=== PATIENT | male | born 1990 | race Caucasian/White ===

== ENCOUNTER 2016-04-20 08:19 | Emergency (ER) | payer OTHER ==
--- NOTE | 2016-04-20 09:30 | UCPHY ---
H & P Time Seen by Provider: 04/20/16 08:46 Patient Type: New HPI/ROS: HPI Diarrhea. 25-year-old male by private vehicle. This patient reports that he has had intermittent watery diarrhea since Tuesday. He describes having 3-4 episodes of this per day. Usually after meals. It has been associated with crampy lower abdominal discomfort. He has had no nausea or vomiting. He has been drinking and eating without issue. No bloody or melenic stool. He denies camping. No ill contacts. No change in diet. No foreign travel. ROS: Constitutional: No fever, no chills. No weakness. Respiratory: No cough. No shortness of breath. Cardiac: No chest pain, no palpitations. Gastrointestinal: As above. Genitourinary: No hematuria. No dysuria or increased frequency with urination. Musculoskeletal: No back pain. No neck pain. No myalgias or arthralgias. Neurological: No headache. No focal weakness or altered sensation. Past medical history: None. Social history: Nonsmoker. Here by himself. Physical Exam: General Appearance: Alert, no distress. This patient is responding to questions appropriately and in full sentences. This patient appears well- hydrated and well-nourished. Eyes: Pupils equal and round no pallor or injection. No lid edema, erythema or injection. Respiratory: There are no retractions, lungs are clear to auscultation with good air movement bilaterally. Cardiovascular: Regular rate and rhythm. No murmur. Gastrointestinal: Abdomen is soft and nontender, no masses, bowel sounds normal. No focal tenderness at McBurney's point. No Thomas sign. Neurological: Motor sensory function is grossly intact. Cranial nerves are normal. Gait is normal. Skin: Warm and dry, no rashes. Extremities are symmetrical. All joints range without pain or impingement. Psychiatric: No agitation. No depression. Database: EKG: Imaging: Procedures: Emergency department course: After my evaluation, I explained to the patient that he likely had a viral enteritis or food-borne illness. His vital signs have been reviewed and are normal. He has a benign abdominal exam. He is eating and drinking fluids without issue. He feels comfortable going home and I feel he is safe for discharge. Follow-up and return to Urgent Care precautions reviewed with him. All of his questions were answered. He was discharged in good condition. Differential Diagnosis: The differential diagnosis on this patient includes but is not limited to food borne illness, viral enteritis. Entero hemorrhagic E coli infection, inflammatory bowel syndrome, severe dehydration unlikely. This represents a partial list of diagnoses considered. These considerations are based on history , physical exam, past history, reassessment and diagnostic testing. Smoking Status: Never smoked Constitutional: Initial Vital Signs Temperature (C) 36.6 C 04/20/16 08:46 Heart Rate 77 04/20/16 08:46 Respiratory Rate 18 04/20/16 08:46 Blood Pressure 110/60 04/20/16 08:46 O2 Sat (%) 97 04/20/16 08:46 O2 Delivery Mode Room Air Allergies/Adverse Reactions: Penicillins Allergy (Verified 04/20/16 08:45) Home Medications: Medication Instructions Recorded NK [No Known Home Meds] 04/20/16 Departure - Departure Disposition: Home, Routine, Self-Care Clinical Impression: Diarrhea Condition: Good Instructions: Acute Diarrhea (ED) Additional Instructions: Read and follow provided instructions. Follow-up with your primary care physician in 1-2 days for re-evaluation as needed. Keep well hydrated and drink lots of fluids. A good fluid to drink is Gatorade mixed with water in a 1-1 dilution. Return to the emergency department for worsening symptoms, vomiting and inability to keep fluids down, abdominal pain, blood in her stool, fever or other serious concerns. Referrals: NONE *PRIMARY CARE P,. [Primary Care Provider] - As per Instructions - PQRS PQRS Measurement: Not applicable.
[2016-04-20 09:52] VITALS: BP 86/67; PULSE 83; RESP 20; TEMP 98.6; O2SAT 95
== END 2016-04-20 09:53 | disposition home or self-care (01) ==
LOC: CED 08:19
DX: R19.7 Diarrhea, unspecified (principal); R10.9 Unspecified abdominal pain
CPT/HCPCS: 99203-PO; G0463-PO

== ENCOUNTER → 2016-10-04 | Emergency (ER) | payer OTHER | END | disposition left against medical advice (07) | LOC: CED 10:44 | DX: Z53.21 Procedure and treatment not carried out due to patient leaving prior to being seen by health care provider (principal) ==